=== PATIENT | female | born 1975 | race Hispanic/Latino ===

== ENCOUNTER 2023-12-09 04:52 | Emergency (ER) | payer BC, MEDICAID ==
[~2023-12-09] VITALS: Ht 167.6 cm; Wt 87.5 kg
[2023-12-09 04:53] VITALS: BP 116/71; PULSE 74; RESP 16
[2023-12-09] MEDS ORDERED: AMOX600S42 PO (05:07)
[2023-12-09] MEDS ORDERED: IBUP-2077 PO (05:07)
== END 2023-12-09 05:15 | disposition home or self-care (01) ==
LOC: EDH 04:52
DX: L03.011 Cellulitis of right finger (principal)
CPT/HCPCS: 10060